=== PATIENT | male | born 1985 | race Caucasian/White ===

== ENCOUNTER 2024-06-04 18:44 | Emergency (ER) | payer OTHER, SELFPAY ==
[2024-06-04 18:54] VITALS: BP 134/71; PULSE 66; RESP 18; TEMP 36.6; O2SAT 98
[2024-06-04 18:56] VITALS: BP 134/71; PULSE 66; RESP 18; TEMP 36.6; O2SAT 98
[2024-06-04] MEDS: LIDOCAINE HCL 1% LOCAL INJ 2 ML AMPUL 6 ML INFILTRATE (19:06)
--- NOTE | 2024-06-04 19:38 | ED.WOUNDLAC ---
HPI - Wound/Laceration General Chief Complaint: Wound/Laceration Stated Complaint: raised skin Time Seen by Provider: 06/04/24 19:02 Source: patient, RN notes reviewed and old records reviewed Mode of arrival: ambulatory Limitations: no limitations History of Present Illness HPI narrative: 38-year-old male to [facility] for complaint of wound to lower right abdomen. Patient states that he he 1st noticed the area approximately 3 days ago and that is becoming increasingly red, swollen, warm and tender to touch. Patient states that they have brown recluse in the home and that his is very concerned that this is a spider bite. Patient denies allergies, fever, dizziness, joint pain, abdominal pain, injury, nausea, vomiting, shortness of breath. Related Data Allergies Allergy/AdvReac Type Severity Reaction Status Date / Time No Known Allergies Allergy Verified 06/04/24 18:54 Review of Systems Review of Systems: All systems reviewed & are unremarkable except as noted in HPI and below Constitutional: Constitutional: Reports no additional constitutional complaints Eyes: Eyes: Reports no additional eye complaints ENT: Reports system reviewed and no additional complaints, except as documented Cardiovascular: Cardiovascular: Reports no additional cardiovascular complaints, Denies chest pain and Denies dyspnea Respiratory: Respiratory: Reports no additional respiratory complaints, Denies cough and Denies dyspnea Musculoskeletal: Musculoskeletal: Reports no additional musculoskeletal complaints Integumentary/Breasts: Skin/Breast: Reports as per HPI, Reports swelling, Reports new lesions ( right lower abdomen), Reports skin pain and Reports skin swelling Neurologic: Reports system reviewed and no additional complaints, except as documented Psychiatric: Psychiatric: Reports no additional psychiatric complaints PMFSH Past Medical History Medical History Acute pain of right knee BMI 37.0-37.9, adult BMI 38.0-38.9,adult BMI 39.0-39.9,adult Body mass index (BMI) of 40.1 to 44.9 in adult Dietary counseling and surveillance (04/30/18) Elevated blood pressure reading Left foot pain Screening for diabetes mellitus Screening for lipid disorders Screening for thyroid disorder Family History Family History Father No problems noted. 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 There is no relevant family history pertinent to the patient complaint. Exam Const: General: cooperative, healthy appearing, no acute distress, alert, uncomfortable, well groomed and well nourished Nutritional Appearance: well nourished Orientation/consciousness: patient oriented x3 Limitations: no limitations HENMT: Head: normal to inspection Ears: external ears normal Face/Nose/Sinus: Normal external nose present, Normal nares present, normal facial exam, No erythema and No edema Face and sinus: normal facial exam, no erythema and no edema Mouth: Yes Normal oral and palatal mucosa present Eyes: General: appearance normal, both eyes and all related structures Neck: Neck: normal visual inspection, full ROM and no meningeal signs Chest: Chest palpation & inspection: normal inspection of the chest Resp: Effort & Inspectio
== END 2024-06-04 19:42 | disposition home or self-care (01) ==
PROVIDERS: Emergency Provider Nurse Practitioner Family
DX: L02.211 Cutaneous abscess of abdominal wall (principal)
CPT/HCPCS: 10061; 87070; 87077; 87205; 99213; G0463